=== PATIENT | female | born 1955 | race Two or more races ===

== ENCOUNTER 2017-04-22 23:07 | Emergency (ER) | payer MEDICAID ==
[~2017-04-22] VITALS: Ht 152.4 cm; Wt 79.8 kg
[~2017-04-22 23:07] MED LIST: AMLO-104 PO; AMLO-99 PO; AMOX-362 PO; AZIT-1 PO; BP MEDS; BUTA1CAP36 PO; CEFU250T67 PO; CELE100C79 PO; CIP500 PO; CITA-128 PO; CLON-393 PO; CYCL10TA29 PO; DIA5 PO; DYA PO; ERYTHROMYCIN OP; FLU20; HCTZ25; HYDR-3083 PO; HYDR-4309 PO; KET10 PO; LEVO-85 PO; LIS20 PO; LISI-349 PO; LISI-362; LISI-368 PO; LISI20TA29 PO; LOR5 PO; LOR5/325 PO; METO-259 PO; MULT1CAP41 PO; NEBI2.5T5 PO; NIT100 PO; OND4 PO; ONDA4TAB PO; ONDA4TAB97 PO; PER PO; POTA20PA10 PO; POTA20TA94 PO; PRO25 PO; PROM-110 PO; TRAM-420 PO
--- NOTE | 2017-04-22 23:14 | ER Report ---
History and Physical Time Seen By MD: 23:13 HPI/ROS CHIEF COMPLAINT: Neck pain, chest pain, anxiety, vomiting HISTORY OF PRESENT ILLNESS: 61-year-old female brought in by her daughters with concerns about her health. She's been having symptoms for 2 weeks of chest tightness and neck pain. She notes no shortness of breath, diaphoresis. She's had several episodes of vomiting. She denies diarrhea or dysuria. Patient denies significant past medical history. Patient thinks she might be having anxiety. REVIEW OF SYSTEMS: Respiratory: No cough, no dyspnea. Cardiovascular: No chest pain, no palpitations. Gastrointestinal: No vomiting, no abdominal pain. Musculoskeletal: No back pain. Allergies: Coded Allergies: morphine (Verified Allergy, Mild, 04/22/17) Uncoded Allergies: ANESTESIA (Allergy, Mild, 12/14/10) Home Meds Active Scripts Hydroxyzine Hcl (HYDROXYZINE HCL) 25 Mg Tablet, 25 MG PO 3-4XD Y for anxiety or nausea, #20 Prov:LANCE TIERNEY Yariel DO 04/23/17 Cephalexin 500 Mg Tab (KEFLEX 500 MG TAB) 500 Mg Tablet, 500 MG PO TID for infection, #20 TAB Prov:LANCE TIERNEY Yariel DO 04/23/17 Reported Medications Amlodipine Besylate (AMLODIPINE BESYLATE) 10 Mg Tablet, 1 TAB PO QDAY, TAB TAKE ONE TABLET BY MOUTH EVERY DAY 08/20/13 Lisinopril (Lisinopril) 20 Mg Tablet, 20 MG PO BID, #30 0 Refills 12/14/10 Discontinued Reported Medications [Erythromycin Op] No Conflict Check 02/08/16 Discontinued Scripts Cyclobenzaprine Hcl (CYCLOBENZAPRINE HCL) 10 Mg Tablet, 10 MG PO TID for Muscle Relaxant, #30 TAB TAKE 1 TABLET BY MOUTH THREE TIMES A DAY Prov:TAMI MELCHOR MD 03/04/15 Butalbital/Aspirin/Caffeine (FGOKCMNHOA-LOK-TIDIMQEY CAP) 1 Each Capsule, 1 EACH PO Q4H for headache, #30 CAPSULE TAKE 1 CAPSULE BY MOUTH EVERY 4 HOURS Prov:TAMI MELCHOR MD 03/04/15 Past Medical/Surgical History Hypertension Reviewed Nurses Notes: Yes Old Medical Records Reviewed: Yes Hx Smoking: No Smoking Status: Never Smoker Exposure to Second Hand Smoke?: No Hx Substance Use Disorder: No Hx Alcohol Use: No Constitutional Vital Sign - Last 24 Hours 04/22/17 04/22/17 04/22/17 04/22/17 23:07 23:14 23:16 23:17 Temp 98.2 Pulse ??? 73 Resp 22 B/P (MAP) 190/124 (146) 190/124 192/116 (141) Pulse Ox 96 O2 Delivery Room Air 04/22/17 04/22/17 04/23/17 04/23/17 23:30 23:37 00:00 00:03 Pulse 72 Resp 17 B/P (MAP) 173/99 (123) 170/121 (137) 181/108 (132) Pulse Ox 95 04/23/17 04/23/17 04/23/17 04/23/17 00:07 00:07 00:30 00:37 Pulse 71 68 Resp 30 B/P (MAP) 166/106 (126) Pulse Ox 98 99 O2 Flow Rate 15.0 04/23/17 04/23/17 04/23/17 04/23/17 01:00 01:30 02:00 02:01 Pulse 71 67 Resp 15 18 17 B/P (MAP) 168/101 (123) 169/110 (129) 169/103 (125) Pulse Ox 100 96 93 Physical Exam General Appearance: The patient is alert, has no immediate need for airway protection and no current signs of toxicity. Vital signs stable, BP grossly elevated HEENT: Pupils equal and round no injection. Oropharynx without redness or exudate, mucous members are moist Respiratory: Chest is non tender, lungs are clear to auscultation. Mild chest wall tenderness Cardiac: regular rate and rhythm, regular rate and rhythm Gastrointestinal: Abdomen is soft and non tender, no masses, bowel sounds normal. Musculoskeletal: Neck: Neck is supple and non tender. No lymphadenopathy, no tenderness in the midline Extremities have full range of motion and are non tender. Skin: No rashes or lesions. DIFFERENTIAL DIAGNOSIS: After history and physical exam differential diagnosis was considered for chest pain including but not limited to myocardial ischemia, pericarditis pulmonary embolus, chest wall pain, pleural inflammation and pulmonary infectious causes. Additionally, anxiety, infection, gastroenteritis , food poisoning, viral syndrome Medical Decision Making Data Points Result Diagram: 04/22/17223304/22/172233 Laboratory Hematology Test 04/22/17 22:34 04/22/17 23:26 Red Blood Count 5.52 M/uL (4.17-5.56) Mean Corpuscular Volume 87.0 fL (80.0-96.0) Mean Corpuscular Hemoglobin 29.8 pg (26.0-33.0) Mean Corpuscular Hemoglobin Concent 34.3 g/dL (32.0-36.0) Red Cell Distribution Width 14.0 % (11.5-14.5) Mean Platelet Volume 7.3 fL (7.2-11.1) Neutrophils (%) (Auto) 52.5 % (39.4-72.5) Lymphocytes (%) (Auto) 35.2 % (17.6-49.6) Monocytes (%) (Auto) 7.6 % (4.1-12.4) Eosinophils (%) (Auto) 4.0 % (0.4-6.7) Basophils (%) (Auto) 0.7 % (0.3-1.4) Nucleated RBC Relative Count (auto) 0.0 /100WBC Neutrophils # (Auto) 4.2 K/uL (2.0-7.4) Lymphocytes # (Auto) 2.8 K/uL (1.3-3.6) Monocytes # (Auto) 0.6 K/uL (0.3-1.0) Eosinophils # (Auto) 0.3 K/uL (0.0-0.5) Basophils # (Auto) 0.1 K/uL (0.0-0.1) Nucleated RBC Absolute Count (auto) 0.00 K/uL Sodium Level 140 mmol/L (137-145) Potassium Level 3.6 mmol/L (3.5-5.0) Chloride Level 104 mmol/L (98-107) Carbon Dioxide Level 25 mmol/L (22-31) Blood Urea Nitrogen 21 mg/dl (7-18) Creatinine 0.80 mg/dl (0.52-1.04) Glomerular Filtration Rate Calc > 60.0 Random Glucose 104 mg/dl (75-110) Calcium Level 9.3 mg/dl (8.4-10.2) Total Bilirubin 1.1 mg/dl (0.2-1.3) Aspartate Amino Transf (AST/SGOT) 30 U/L (0-35) Alanine Aminotransferase (ALT/SGPT) 45 U/L (0-56) Alkaline Phosphatase 107 U/L (0-126) Troponin I < 0.012 ng/ml Total Protein 7.4 gm/dl (6.3-8.2) Albumin 4.2 g/dl (3.5-5.0) Amylase Level 77 U/L (0-110) Lipase 257 U/L (23-300) Urine Color Yellow Urine Clarity Slightly-cloudy Urine pH 6.0 pH (4.8-9.5) Urine Specific [place] 1.020 Urine Protein Negative mg/dL (NEGATIVE) Urine Glucose (UA) Negative mg/dL (NEGATIVE) Urine Ketones Negative mg/dL (NEGATIVE) Urine Blood Negative (NEGATIVE) Urine Nitrite Negative (NEGATIVE) Urine Bilirubin Negative (NEGATIVE) Urine Urobilinogen Negative mg/dL (0.2-1.9) Urine Leukocyte Esterase Moderate (NEGATIVE) Urine RBC None /HPF (0-2/HPF) Urine WBC 49 /HPF (0-5/HPF) Urine Squamous Epithelial Cells Many /LPF (</=FEW) Urine Bacteria Negative /HPF (NONE-FEW) Urine Mucus None /HPF (NONE-FEW) Chemistry Test 04/22/17 22:34 04/22/17 23:26 White Blood Count 8.0 k/uL (4.5-11.0) Red Blood Count 5.52 M/uL (4.17-5.56) Hemoglobin 16.5 g/dL (12.0-16.0) Hematocrit 48.0 % (34.0-47.0) Mean Corpuscular Volume 87.0 fL (80.0-96.0) Mean Corpuscular Hemoglobin 29.8 pg (26.0-33.0) Mean Corpuscular Hemoglobin Concent 34.3 g/dL (32.0-36.0) Red Cell Distribution Width 14.0 % (11.5-14.5) Platelet Count 335 K/uL (150-450) Mean Platelet Volume 7.3 fL (7.2-11.1) Neutrophils (%) (Auto) 52.5 % (39.4-72.5) Lymphocytes (%) (Auto) 35.2 % (17.6-49.6) Monocytes (%) (Auto) 7.6 % (4.1-12.4) Eosinophils (%) (Auto) 4.0 % (0.4-6.7) Basophils (%) (Auto) 0.7 % (0.3-1.4) Nucleated RBC Relative Count (auto) 0.0 /100WBC Neutrophils # (Auto) 4.2 K/uL (2.0-7.4) Lymphocytes # (Auto) 2.8 K/uL (1.3-3.6) Monocytes # (Auto) 0.6 K/uL (0.3-1.0) Eosinophils # (Auto) 0.3 K/uL (0.0-0.5) Basophils # (Auto) 0.1 K/uL (0.0-0.1) Nucleated RBC Absolute Count (auto) 0.00 K/uL Glomerular Filtration Rate Calc > 60.0 Calcium Level 9.3 mg/dl (8.4-10.2) Total Bilirubin 1.1 mg/dl (0.2-1.3) Aspartate Amino Transf (AST/SGOT) 30 U/L (0-35) Alanine Aminotransferase (ALT/SGPT) 45 U/L (0-56) Alkaline Phosphatase 107 U/L (0-126) Troponin I < 0.012 ng/ml Total Protein 7.4 gm/dl (6.3-8.2) Albumin 4.2 g/dl (3.5-5.0) Amylase Level 77 U/L (0-110) Lipase 257 U/L (23-300) Urine Color Yellow Urine Clarity Slightly-cloudy Urine pH 6.0 pH (4.8-9.5) Urine Specific [place] 1.020 Urine Protein Negative mg/dL (NEGATIVE) Urine Glucose (UA) Negative mg/dL (NEGATIVE) Urine Ketones Negative mg/dL (NEGATIVE) Urine Blood Negative (NEGATIVE) Urine Nitrite Negative (NEGATIVE) Urine Bilirubin Negative (NEGATIVE) Urine Urobilinogen Negative mg/dL (0.2-1.9) Urine Leukocyte Esterase Moderate (NEGATIVE) Urine RBC None /HPF (0-2/HPF) Urine WBC 49 /HPF (0-5/HPF) Urine Squamous Epithelial Cells Many /LPF (</=FEW) Urine Bacteria Negative /HPF (NONE-FEW) Urine Mucus None /HPF (NONE-FEW) Urinalysis Test 04/22/17 23:26 Urine Color Yellow Urine Clarity Slightly-cloudy Urine pH 6.0 pH (4.8-9.5) Urine Specific [place] 1.020 Urine Protein Negative mg/dL (NEGATIVE) Urine Glucose (UA) Negative mg/dL (NEGATIVE) Urine Ketones Negative mg/dL (NEGATIVE) Urine Blood Negative (NEGATIVE) Urine Nitrite Negative (NEGATIVE) Urine Bilirubin Negative (NEGATIVE) Urine Urobilinogen Negative mg/dL (0.2-1.9) Urine Leukocyte Esterase Moderate (NEGATIVE) Urine RBC None /HPF (0-2/HPF) Urine WBC 49 /HPF (0-5/HPF) Urine Squamous Epithelial Cells Many /LPF (</=FEW) Urine Bacteria Negative /HPF (NONE-FEW) Urine Mucus None /HPF (NONE-FEW) EKG/Imaging EKG Interpretation 12 lead EK Rhythm: normal sinus rhythm [place]: normal QRS: normal ST segments: normal, no evidence of ischemia or dysrhythmia diffuse T- wave flattening, no old EKGs for comparison Imaging X-ray: Two-view chest x-ray was obtained. I viewed the images myself on the PACS system. My interpretation of the images is: No infiltrate, no effusion, normal mediastinum. The radiologist interpretation had no clinically significant variation from this interpretation. ED Course/Re-evaluation Clinical Indication for ER IV: Hydration, IV Access ED Course Patient was admitted to an examination room. H&P was done. The differential diagnoses was considered. On clinical examination. Patient has a variety of symptoms. Mostly vomiting and neck pain. Patient's treated with IV fluid hydration, Zofran, fentanyl, Toradol, Ativan. Her EKG is unremarkable for evidence of ischemia. Her troponin and d-dimer are negative. Patient's urinalysis shows urinary tract infection. Patient's treated with Keflex 1000 mg here. She is discharged home on hydroxyzine for nausea control and anxiety control. She is advised to take ibuprofen 600 mg 3 times daily. Her blood pressure came down after medication for pain and anxiety. Decision to Disposition Date: Apr 23, 2017 Decision to Disposition Time: 00:23 Depart Departure Latest Vital Signs Vital Signs Date Time Temp Pulse Resp B/P (MAP) Pulse Ox O2 Delivery O2 Flow Rate FiO2 04/23/17 02:01 17 93 04/23/17 02:00 67 169/103 (125) 04/23/17 00:07 15.0 1/1/18 23:16 98.2 Room Air Impression: Primary Impression: Urinary tract infection Additional Impressions: Back pain Chest tightness Vomiting Hypertension Condition: Improved Disposition: HOME OR SELF-CARE Referrals: ANDRADE ALY PA-C (PCP) New Scripts Hydroxyzine Hcl (HYDROXYZINE HCL) 25 Mg Tablet 25 MG PO 3-4XD Y for anxiety or nausea, #20 Prov: LANCE TIERNEY Yariel VERMA 04/23/17 Cephalexin 500 Mg Tab (KEFLEX 500 MG TAB) 500 Mg Tablet 500 MG PO TID for infection, #20 TAB Prov: LANCE TIERNEY Yariel VERMA 04/23/17 Patient Instructions: Urinary Tract Infection in Women (ED) Additional Instructions: Take ibuprofen 200 mg 3 tablets 3 times a day with food Drink plenty of water to help flush out the urine infection Follow-up with your primary care doctor if unimproved in 3-5 days Problem Qualifiers Primary Impression: Urinary tract infection Urinary tract infection type: acute cystitis Hematuria presence: without hematuria Qualified Codes: N30.00 - Acute cystitis without hematuria Additional Impressions: Back pain Back pain location: thoracic back pain Chronicity: unspecified Back pain laterality: unspecified Qualified Codes: M54.6 - Pain in thoracic spine Vomiting Vomiting type: unspecified Vomiting Intractability: unspecified Nausea presence: with nausea Qualified Codes: R11.2 - Nausea with vomiting, unspecified Hypertension Hypertension type: essential hypertension Qualified Codes: I10 - Essential ( primary) hypertension LANCE TIERNEY Yariel VERMA Apr 22, 2017 23:13
[2017-04-22] MEDS ORDERED: NS(*) 0.9% 1000 ML BAG 1,000 ML IV ONE (23:26)
[2017-04-22] MEDS ORDERED: KETOROLAC 30 MG/ML VIAL IVP ONE (23:30)
[2017-04-22] MEDS ORDERED: fentaNYL CITR 100 MCG/2 ML AMP IVP ONE (23:30)
[2017-04-22] MEDS ORDERED: LORazepam 2 MG/ML VIAL IVP ONE (23:30)
[2017-04-22] MEDS ORDERED: ONDANSETRON 4 MG/2 ML VIAL IVP ONE (23:30)
[2017-04-22 23:43] LABS: PLATELET COUNT, AUTOMATED 335 K/uL (150-450)
--- NOTE | 2017-04-23 00:17 | RADIOLOGY IMAGING REPORT ---
FACILITY: [facility] PATIENT NAME: Ramya Russell : 1955 MR: [id number] V: [id number] EXAM DATE: ORDERING PHYSICIAN: LANCE TIERNEY TECHNOLOGIST: Location: [facility] [place] Patient: Ramya Russell : 1955 Visit/Account:[id number] Date of Sevice: 04/22/2017 CHEST SINGLE AP Additional pertinent History: Chest pain COMPARISON STUDIES: none FINDINGS: Support lines and catheters: EKG wire leads Lungs and Pleura: Lung fishman well expanded with no infiltrates or consolidations. No parenchymal ma ss lesions are seen. There are no effusions Heart and vasculature: Negative. Mindi and Mediastinum: Negative. Bones and Chest wall: Negative. Upper Abdomen: Negative. IMPRESSION: 1. Negative chest Report Dictated By: Nirmal Euceda MD at 04/23/2017 12:09 AM Report E-Signed By: Nirmal Euceda MD at 04/23/2017 12:13 AM WSN:[id number]
[2017-04-23] MEDS ORDERED: CEPH500T7 PO (00:28)
[2017-04-23] MEDS ORDERED: HYDR-4225 PO (00:28)
--- NOTE | 2017-04-23 00:31 | EKG ---
FACILITY: [facility] - [place] PATIENT NAME: VIVIAN HOPPER : [id number] MR: [id number] V: [id number] EXAM DATE: ORDERING PHYSICIAN: LANCE TIERNEY TECHNOLOGIST: SJ Pope Reason : CARDIAC Blood Pressure : / mmHG Vent. Rate : 080 BPM Atrial Rate : 080 BPM P-R Int : 150 ms QRS Dur : 082 ms QT Int : 392 ms P-R-T Axes : 057 009 059 degrees QTc Int : 452 ms Normal sinus rhythm Normal ECG When compared with ECG of 25-DEC-2014 15:13, No significant change was found Confirmed by ASHLEE MARIE ([id number]) on 04/23/2017 6:49:06 AM Referred By: Confirmed By:ASHLEE MARIE
[2017-04-23 02:00] VITALS: BP 169/103
[2017-04-23] MEDS ORDERED: CEPHALEXIN MONO 500 MG CAP PO ONE (02:00)
[2017-04-23] MEDS ORDERED: hydrOXYzine 25 MG TAB TH 2 TAB/BOTTLE PO ONE (02:00)
== END 2017-04-23 02:14 | disposition home or self-care (01) ==
LOC: ER 23:33
DX: N30.00 Acute cystitis without hematuria (principal); M54.6 Pain in thoracic spine; R11.2 Nausea with vomiting, unspecified; I10 Essential (primary) hypertension
CPT/HCPCS: 71045; 81001; 82150; 83690; 84484; 85025; 87088; 93005; 99284; J1885; J2060; J2405; J3010; J7030; 82040; 82247; 82310; 82374; 82435; 82565; 82947; 84075; 84132; 84155; 84295; 84450; 84460; 84520

== ENCOUNTER 2017-05-11 14:13 | Emergency (ER) | payer MEDICAID ==
[~2017-05-11 14:13] MED LIST changes: +CEPH500T7 PO; +HYDR-4225 PO
--- NOTE | 2017-05-11 14:36 | ER Report ---
History and Physical Time Seen By MD: 14:22 Hx. 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 THE PATIENT REPORTS HEADACHE FOR 5 DAYS WITH 1 EPISODE OF VOMITING YESTERDAY. HPI/ROS CHIEF COMPLAINT: Headache HISTORY OF PRESENT ILLNESS: 61-year-old female patient presents to emergency room with complaint of headache. Patient states this has been going on for the past 5 days. Patient states she did have one episode of emesis yesterday. States the pain seems more on the right side. She denies having any diarrhea. She states that she has had some visual changes. She has taken some ibuprofen for this which has helped, however was not resolve the headache. She states that she is to blood pressure medication and denies missing any doses. Blood pressure here in the emergency room is 184/82. REVIEW OF SYSTEMS: Respiratory: No cough, no dyspnea. Cardiovascular: No chest pain, no palpitations. Gastrointestinal: As noted above Musculoskeletal: No back pain. Allergies: Coded Allergies: morphine (Verified Allergy, Mild, 04/22/17) Uncoded Allergies: ANESTESIA (Allergy, Mild, 12/14/10) Home Meds Active Scripts Ketorolac Tromethamine (KETOROLAC TROMETHAMINE) 10 Mg Tab, 10 MG PO Q6H, #20 TAB Prov:RANJIT AHMADI 05/11/17 Hydroxyzine Hcl (HYDROXYZINE HCL) 25 Mg Tablet, 25 MG PO 3-4XD Y for anxiety or nausea, #20 Prov:LANCE TIERNEY DO 04/23/17 Reported Medications Amlodipine Besylate (AMLODIPINE BESYLATE) 10 Mg Tablet, 1 TAB PO QDAY, TAB TAKE ONE TABLET BY MOUTH EVERY DAY 08/20/13 Lisinopril (Lisinopril) 20 Mg Tablet, 20 MG PO BID, #30 0 Refills 12/14/10 Discontinued Scripts Cephalexin 500 Mg Tab (KEFLEX 500 MG TAB) 500 Mg Tablet, 500 MG PO TID for infection, #20 TAB Prov:LANCE TIERNEY DO 04/23/17 Past Medical/Surgical History Patient has a past medical history of migraines, hypertension, UTI, arthritis. Patient has a surgical history of tumor removal, appendectomy. Reviewed Nurses Notes: Yes Hx Smoking: No Smoking Status: Never Smoker Exposure to Second Hand Smoke?: No Hx Substance Use Disorder: No Hx Alcohol Use: No Constitutional Vital Sign - Last 24 Hours 05/11/17 05/11/17 05/11/17 05/11/17 14:16 14:18 14:19 14:28 Temp 97.6 Pulse 79 79 Resp 20 B/P (MAP) 190/115 (140) 184/94 184/94 (124) Pulse Ox 92 92 O2 Delivery Room Air 05/11/17 05/11/17 05/11/17 05/11/17 14:30 14:58 15:00 15:13 Pulse 77 82 B/P (MAP) 186/101 (129) 177/98 (124) Pulse Ox 90 92 05/11/17 05/11/17 05/11/17 05/11/17 15:18 15:30 16:00 16:15 B/P (MAP) 153/119 (130) 164/108 (126) 162/103 (122) Pulse Ox 91 Physical Exam General Appearance: The patient is alert, has no immediate need for airway protection and no current signs of toxicity. Eyes: Pupils equal and round no injection. Extraocular movements intact. Respiratory: Chest is non tender, lungs are clear to auscultation. Cardiac: regular rate and rhythm Gastrointestinal: Abdomen is soft and non tender, no masses, bowel sounds normal. Musculoskeletal: Neck: Neck is supple and non tender. Extremities have full range of motion and are non tender. Skin: No rashes or lesions. DIFFERENTIAL DIAGNOSIS: After history and physical exam differential diagnosis was considered for headache including but not limited to subarachnoid hemorrhage , migraine headache, tension headache and infectious causes such as meningitis, pharyngitis and sinusitis. Medical Decision Making Data Points Result Diagram: 05/11/17 1430 05/11/17 1430 Laboratory Hematology Test 05/11/17 14:30 05/11/17 15:24 Red Blood Count 5.45 M/uL (4.17-5.56) Mean Corpuscular Volume 86.8 fL (80.0-96.0) Mean Corpuscular Hemoglobin 30.2 pg (26.0-33.0) Mean Corpuscular Hemoglobin Concent 34.8 g/dL (32.0-36.0) Red Cell Distribution Width 13.9 % (11.5-14.5) Mean Platelet Volume 7.3 fL (7.2-11.1) Neutrophils (%) (Auto) 55.8 % (39.4-72.5) Lymphocytes (%) (Auto) 33.2 % (17.6-49.6) Monocytes (%) (Auto) 5.7 % (4.1-12.4) Eosinophils (%) (Auto) 4.7 % (0.4-6.7) Basophils (%) (Auto) 0.6 % (0.3-1.4) Nucleated RBC Relative Count (auto) 0.3 /100WBC Neutrophils # (Auto) 4.1 K/uL (2.0-7.4) Lymphocytes # (Auto) 2.4 K/uL (1.3-3.6) Monocytes # (Auto) 0.4 K/uL (0.3-1.0) Eosinophils # (Auto) 0.3 K/uL (0.0-0.5) Basophils # (Auto) 0.0 K/uL (0.0-0.1) Nucleated RBC Absolute Count (auto) 0.02 K/uL Peripheral Blood Smear No Y/N Erythrocyte Sedimentation Rate 5 mm/HOUR (0-30) Sodium Level 138 mmol/L (137-145) Potassium Level 3.7 mmol/L (3.5-5.0) Chloride Level 103 mmol/L (98-107) Carbon Dioxide Level 25 mmol/L (22-31) Blood Urea Nitrogen 13 mg/dl (7-18) Creatinine 0.90 mg/dl (0.52-1.04) Glomerular Filtration Rate Calc > 60.0 Random Glucose 130 mg/dl (75-110) Calcium Level 9.2 mg/dl (8.4-10.2) Total Bilirubin 1.8 mg/dl (0.2-1.3) Aspartate Amino Transf (AST/SGOT) 29 U/L (0-35) Alanine Aminotransferase (ALT/SGPT) 50 U/L (0-56) Alkaline Phosphatase 91 U/L (0-126) Troponin I < 0.012 ng/ml C-Reactive Protein < 0.5 mg/dl (<1.0) Total Protein 7.2 gm/dl (6.3-8.2) Albumin 4.2 g/dl (3.5-5.0) Urine Color Yellow Urine Clarity Clear Urine pH 7.0 pH (4.8-9.5) Urine Specific [place] 1.009 Urine Protein Negative mg/dL (NEGATIVE) Urine Glucose (UA) Negative mg/dL (NEGATIVE) Urine Ketones Negative mg/dL (NEGATIVE) Urine Blood Small (NEGATIVE) Urine Nitrite Negative (NEGATIVE) Urine Bilirubin Negative (NEGATIVE) Urine Urobilinogen Negative mg/dL (0.2-1.9) Urine Leukocyte Esterase Moderate (NEGATIVE) Urine RBC 1 /HPF (0-2/HPF) Urine WBC 17 /HPF (0-5/HPF) Urine Squamous Epithelial Cells Many /LPF (</=FEW) Urine Transitional Epithelial Cells Many /LPF (NONE-FEW) Urine Bacteria Few /HPF (NONE-FEW) Urine Mucus None /HPF (NONE-FEW) Chemistry Test 05/11/17 14:30 05/11/17 15:24 White Blood Count 7.3 k/uL (4.5-11.0) Red Blood Count 5.45 M/uL (4.17-5.56) Hemoglobin 16.5 g/dL (12.0-16.0) Hematocrit 47.3 % (34.0-47.0) Mean Corpuscular Volume 86.8 fL (80.0-96.0) Mean Corpuscular Hemoglobin 30.2 pg (26.0-33.0) Mean Corpuscular Hemoglobin Concent 34.8 g/dL (32.0-36.0) Red Cell Distribution Width 13.9 % (11.5-14.5) Platelet Count 315 K/uL (150-450) Mean Platelet Volume 7.3 fL (7.2-11.1) Neutrophils (%) (Auto) 55.8 % (39.4-72.5) Lymphocytes (%) (Auto) 33.2 % (17.6-49.6) Monocytes (%) (Auto) 5.7 % (4.1-12.4) Eosinophils (%) (Auto) 4.7 % (0.4-6.7) Basophils (%) (Auto) 0.6 % (0.3-1.4) Nucleated RBC Relative Count (auto) 0.3 /100WBC Neutrophils # (Auto) 4.1 K/uL (2.0-7.4) Lymphocytes # (Auto) 2.4 K/uL (1.3-3.6) Monocytes # (Auto) 0.4 K/uL (0.3-1.0) Eosinophils # (Auto) 0.3 K/uL (0.0-0.5) Basophils # (Auto) 0.0 K/uL (0.0-0.1) Nucleated RBC Absolute Count (auto) 0.02 K/uL Peripheral Blood Smear No Y/N Erythrocyte Sedimentation Rate 5 mm/HOUR (0-30) Glomerular Filtration Rate Calc > 60.0 Calcium Level 9.2 mg/dl (8.4-10.2) Total Bilirubin 1.8 mg/dl (0.2-1.3) Aspartate Amino Transf (AST/SGOT) 29 U/L (0-35) Alanine Aminotransferase (ALT/SGPT) 50 U/L (0-56) Alkaline Phosphatase 91 U/L (0-126) Troponin I < 0.012 ng/ml C-Reactive Protein < 0.5 mg/dl (<1.0) Total Protein 7.2 gm/dl (6.3-8.2) Albumin 4.2 g/dl (3.5-5.0) Urine Color Yellow Urine Clarity Clear Urine pH 7.0 pH (4.8-9.5) Urine Specific [place] 1.009 Urine Protein Negative mg/dL (NEGATIVE) Urine Glucose (UA) Negative mg/dL (NEGATIVE) Urine Ketones Negative mg/dL (NEGATIVE) Urine Blood Small (NEGATIVE) Urine Nitrite Negative (NEGATIVE) Urine Bilirubin Negative (NEGATIVE) Urine Urobilinogen Negative mg/dL (0.2-1.9) Urine Leukocyte Esterase Moderate (NEGATIVE) Urine RBC 1 /HPF (0-2/HPF) Urine WBC 17 /HPF (0-5/HPF) Urine Squamous Epithelial Cells Many /LPF (</=FEW) Urine Transitional Epithelial Cells Many /LPF (NONE-FEW) Urine Bacteria Few /HPF (NONE-FEW) Urine Mucus None /HPF (NONE-FEW) Urinalysis Test 05/11/17 15:24 Urine Color Yellow Urine Clarity Clear Urine pH 7.0 pH (4.8-9.5) Urine Specific [place] 1.009 Urine Protein Negative mg/dL (NEGATIVE) Urine Glucose (UA) Negative mg/dL (NEGATIVE) Urine Ketones Negative mg/dL (NEGATIVE) Urine Blood Small (NEGATIVE) Urine Nitrite Negative (NEGATIVE) Urine Bilirubin Negative (NEGATIVE) Urine Urobilinogen Negative mg/dL (0.2-1.9) Urine Leukocyte Esterase Moderate (NEGATIVE) Urine RBC 1 /HPF (0-2/HPF) Urine WBC 17 /HPF (0-5/HPF) Urine Squamous Epithelial Cells Many /LPF (</=FEW) Urine Transitional Epithelial Cells Many /LPF (NONE-FEW) Urine Bacteria Few /HPF (NONE-FEW) Urine Mucus None /HPF (NONE-FEW) EKG/Imaging EKG Interpretation 12 lead EKG: Rhythm: normal sinus rhythm [place]: normal QRS: normal ST segments: Nonspecific T-wave abnormality Imaging 2 VIEWS CHEST INDICATION: Hypertension and headache. COMPARISON: 04/22/2017. FINDINGS: Cardiomediastinal silhouette and pulmonary vessels within normal limits. There is no focal infiltrate or lobar consolidation. There is no pneumothorax or pleural effusion. No nodule. Upper abdomen is unremarkable. No acute bony abnormality. IMPRESSION: 1. No acute cardiopulmonary process. Report Dictated By: Familia Zafar at 05/11/2017 3:00 PM Report E-Signed By: Familia Zafar at 05/11/2017 3:01 PM HEAD W/O CONTRAST EXAMINATION: CT head/brain without contrast HISTORY: Headache TECHNIQUE: Contiguous axial images were obtained from the skull base to the vertex without intravenous contrast. One of the following dose optimization techniques was utilized in the performance of this exam: Automated exposure control; adjustment of the mA and/ or kV according to the patient's size; or use of an iterative reconstruction technique. Specific details can be referenced in the facility's radiology CT exam operational policy. COMPARISON STUDIES: None FINDINGS: Ventricles/sulci/fissures: Midline in position and normal in configuration. Masses/hemorrhage/midline shift: No hemorrhage or mass. White matter: No white matter edema. Guzman-white differentiation: Well-maintained. No cerebral edema. No sulci effacement. Extra-axial spaces: No subarachnoid blood. Dural venous sinuses/arterial structures: Prominent calcific changes noted along the distal left vertebral artery. 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 Skull base/calvarium: Negative Visualized mastoid air cells/paranasal sinuses: Negative IMPRESSION: 1. Negative CT scan of the head for acute intracranial pathology. Report Dictated By: Nirmal Euceda MD at 05/11/2017 3:01 PM Report E-Signed By: Nirmal Euceda MD at 05/11/2017 3:04 PM ED Course/Re-evaluation ED Course Patient was admitted to exam room, history and physical were obtained. Differential diagnoses were considered. On examination cranial nerves II through XII grossly intact, heart is regular. A CBC, CMP, troponin, EKG, chest x -ray, CT scan of the head were done. The labs were unremarkable, CT scan of head was negative, with the chest x-ray was also negative. A urinalysis was done which did show 17 white blood cells per field. Patient had just finished treatment with antibiotics for urinary tract infection. As a result of that we will go ahead and culture the urine and put her on antibiotics if she needs to. Patient was treated with 30 mg of Toradol, 25 mg of Benadryl, 12.5 mg of Phenergan, 30 mg of Norflex. She does received 0.1 mg of clonidine. Her blood pressure did improve, she was 162/103 on discharge. Patient states she had complete resolution of her headache. She states she's feeling better would like to go home. I had initially planned on sending her home with clonidine that she can take as needed however she does not have a blood pressure cuff at home. We will go ahead and hold off on that and have her follow-up with her primary care provider this next week. I discussed this with the patient and her daughter and they verbalized understanding and agreement. Decision to Disposition Date: May 11, 2017 Decision to Disposition Time: 16:09 Depart Departure Latest Vital Signs Vital Signs Date Time Temp Pulse Resp B/P (MAP) Pulse Ox O2 Delivery O2 Flow Rate FiO2 05/11/17 16:15 162/103 (122) 05/11/17 15:18 91 05/11/17 15:13 82 05/11/17 14:18 97.6 20 Room Air Impression: Primary Impression: Headache Additional Impression: Hypertension Condition: Improved Disposition: HOME OR SELF-CARE New Scripts Ketorolac Tromethamine (KETOROLAC TROMETHAMINE) 10 Mg Tab 10 MG PO Q6H, #20 TAB Prov: DAIANARANJIT FNP 05/11/17 Patient Instructions: Acute Headache (ED) Additional Instructions: Follow up with your primary care provider in the next week. Return to the ER if condition worsens. Get plenty of rest today. You may take some medication for your headache if it returns. Increase fluid intake. Problem Qualifiers Primary Impression: Headache Headache type: unspecified Headache chronicity pattern: acute headache Intractability: not intractable Qualified Codes: R51 - Headache Additional Impression: Hypertension Hypertension type: essential hypertension Qualified Codes: I10 - Essential ( primary) hypertension RANJIT AHMADI May 11, 2017 14:36
[2017-05-11 14:41] LABS: PLATELET COUNT, AUTOMATED 315 K/uL (150-450)
--- NOTE | 2017-05-11 15:06 | RADIOLOGY IMAGING REPORT ---
FACILITY: [facility] [place] PATIENT NAME: Ramya Russell : 1955 MR: [id number] V: [id number] EXAM DATE: ORDERING PHYSICIAN: RANJIT AHMADI TECHNOLOGIST: Location: [facility] Patient: Ramya Russell : 1955 Visit/Account:[id number] Date of Sevice: 05/11/2017 2 VIEWS CHEST INDICATION: Hypertension and headache. COMPARISON: 04/22/2017. FINDINGS: Cardiomediastinal silhouette and pulmonary vessels within normal limits. There is no focal infiltrate or lobar consolidation. There is no pneumothorax or pleural effusion. No nodule. Upper abdomen is unremarkable. No acute bony abnormality. IMPRESSION: 1. No acute cardiopulmonary process. Report Dictated By: Familia Zafar at 05/11/2017 3:00 PM Report E-Signed By: Familia Zafar at 05/11/2017 3:01 PM WSN:[id number]
--- NOTE | 2017-05-11 15:07 | RADIOLOGY IMAGING REPORT ---
FACILITY: [facility] PATIENT NAME: Ramya Russell : 1955 MR: [id number] V: [id number] EXAM DATE: ORDERING PHYSICIAN: RANJIT AHMADI TECHNOLOGIST: Location: [facility] Patient: Ramya Russell : 1955 Visit/Account:[id number] Date of Sevice: 05/11/2017 HEAD W/O CONTRAST EXAMINATION: CT head/brain without contrast HISTORY: Headache TECHNIQUE: Contiguous axial images were obtained from the skull base to the vertex without intravenou s contrast. One of the following dose optimization techniques was utilized in the performance of this exam: Autom ated exposure control; adjustment of the mA and/or kV according to the patient's size; or use of an i terative reconstruction technique. Specific details can be referenced in the facility's radiology C T exam operational policy. COMPARISON STUDIES: None FINDINGS: Ventricles/sulci/fissures: Midline in position and normal in configuration. Masses/hemorrhage/midline shift: No hemorrhage or mass. White matter: No white matter edema. Guzman-white differentiation: Well-maintained. No cerebral edema. No sulci effacement. Extra-axial spaces: No subarachnoid blood. Dural venous sinuses/arterial structures: Prominent calcific changes noted along the distal left vert ebral artery. 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 Skull base/calvarium: Negative Visualized mastoid air cells/paranasal sinuses: Negative IMPRESSION: 1. Negative CT scan of the head for acute intracranial pathology. Report Dictated By: Nirmal Euceda MD at 05/11/2017 3:01 PM Report E-Signed By: Nirmal Euceda MD at 05/11/2017 3:04 PM WSN:[id number]
[2017-05-11] MEDS ORDERED: cloNIDine HCL 0.1 MG TAB PO ONE (15:20)
[2017-05-11] MEDS ORDERED: ORPHENADRINE 60MG/2ML INJ IVP ONE (15:20)
[2017-05-11] MEDS ORDERED: diphenhydrAMINE 50 MG/ML VIAL IVP ONE (15:20)
[2017-05-11] MEDS ORDERED: KETOROLAC 30 MG/ML VIAL IVP ONE (15:20)
[2017-05-11] MEDS ORDERED: PROMETHAZINE 25 MG/ML 1 ML AMP IVP ONE (15:20)
--- NOTE | 2017-05-11 15:23 | EKG ---
FACILITY: [facility] [place] PATIENT NAME: VIVIAN HOPPER : [id number] MR: [id number] V: [id number] EXAM DATE: ORDERING PHYSICIAN: RANJIT AHMADI TECHNOLOGIST: EMANI Pope Reason : HYPERTENSION Blood Pressure : / mmHG Vent. Rate : 076 BPM Atrial Rate : 076 BPM P-R Int : 156 ms QRS Dur : 082 ms QT Int : 422 ms P-R-T Axes : 061 006 064 degrees QTc Int : 474 ms Normal sinus rhythm Nonspecific T wave abnormality Prolonged QT Abnormal ECG When compared with ECG of 22-APR-2017 23:45, No significant change was found Confirmed by ASHLEE MARIE ([id number]) on 05/11/2017 8:37:08 PM Referred By: DAIANA Confirmed By:ASHLEE MARIE
[2017-05-11] MEDS ORDERED: KET10 PO (16:08)
[2017-05-11 16:15] VITALS: BP 162/103
== END 2017-05-11 16:22 | disposition home or self-care (01) ==
LOC: ER 14:26
DX: R51 Headache (principal); I10 Essential (primary) hypertension; Z87.440 Personal history of urinary (tract) infections
CPT/HCPCS: 70450; 71046; 81001; 84484; 85025; 85651; 86140; 87088; 93005; 96374; 96375; 99284; J1200; J1885; J2360; J2550; 82040; 82247; 82310; 82374; 82435; 82565; 82947; 84075; 84132; 84155; 84295; 84450; 84460; 84520

== ENCOUNTER 2017-07-12 20:09 | Emergency (ER) | payer MEDICAID ==
[2017-07-12] MEDS ORDERED: BENZ200C15 PO (20:26)
[2017-07-12] MEDS ORDERED: PRED20TA6 PO (20:27)
--- NOTE | 2017-07-12 20:27 | ER Report ---
History and Physical Time Seen By MD: 20:26 Hx. of Stated Complaint: CHEST PAIN WITH COUGHING, DIZZINESS HPI/ROS CHIEF COMPLAINT: cough HISTORY OF PRESENT ILLNESS: This is a 61 year old female. She has had a cough for a little over a week now. Coughing is now causing some chest pain in the ribs. She is not short of breath. Has a headache and a runny nose. No fevers. No nausea or vomiting. Normal bowel and bladder function. Allergies: Coded Allergies: morphine (Verified Allergy, Mild, 04/22/17) Uncoded Allergies: ANESTESIA (Allergy, Mild, 12/14/10) Home Meds Active Scripts Hydrocodone Bit/Acetaminophen (HYDROCODON-ACETAMINOPHEN 5-325) 1 Each Tablet, 1 EACH PO Q4H Y for PAIN, #12 TAB 0 Refills Prov:VIRGIE WHITE MD 07/12/17 Reported Medications Albuterol Sulfate (VENTOLIN HFA) 18 Gm Inh, 1-2 PUFF INH 3-4XD, INH 07/12/17 Doxycycline Hyclate (Doxycycline Hyclate) 75 Mg Tablet, 100 07/12/17 Prednisone (PREDNISONE) 20 Mg Tablet, 20 MG PO BID, TAB 07/12/17 Benzonatate (BENZONATATE) 200 Mg Capsule, 200 MG PO TID, #15 CAP 07/12/17 Amlodipine Besylate (AMLODIPINE BESYLATE) 10 Mg Tablet, 1 TAB PO QDAY, TAB TAKE ONE TABLET BY MOUTH EVERY DAY 08/20/13 Lisinopril (Lisinopril) 20 Mg Tablet, 20 MG PO BID, #30 0 Refills 12/14/10 Discontinued Scripts Ketorolac Tromethamine (KETOROLAC TROMETHAMINE) 10 Mg Tab, 10 MG PO Q6H, #20 TAB Prov:RANJIT AHMADI 05/11/17 Hydroxyzine Hcl (HYDROXYZINE HCL) 25 Mg Tablet, 25 MG PO 3-4XD Y for anxiety or nausea, #20 Prov:LANCE TIERNEY DO 04/23/17 Reviewed Nurses Notes: Yes Hx Smoking: No Smoking Status: Never Smoker Exposure to Second Hand Smoke?: No Hx Substance Use Disorder: No Hx Alcohol Use: No Constitutional Vital Sign - Last 24 Hours 07/12/17 07/12/17 07/12/17 07/12/17 20:09 20:13 20:14 20:24 Temp 99.1 Pulse ??? 93 94 Resp 16 35 B/P (MAP) 161/115 161/115 (130) Pulse Ox 94 94 O2 Delivery Room Air 07/12/17 07/12/17 07/12/17 07/12/17 20:39 20:54 21:06 21:11 Pulse 93 ??? 90 Resp 28 32 B/P (MAP) 121/75 (90) Pulse Ox 93 93 07/12/17 07/12/17 07/12/17 07/12/17 21:30 21:41 22:00 22:05 Pulse 85 87 Resp 26 14 B/P (MAP) 141/90 (107) 146/89 (108) Pulse Ox 93 95 07/12/17 22:11 Pulse 85 Resp 16 B/P (MAP) 142/86 (104) Pulse Ox 92 O2 Delivery Room Air Physical Exam General Appearance: The patient is alert. No acute distress. Eyes: Pupils are equal, round. Reactive to light. No pallor, injection or icterus. ENT: Mucous membranes are moist. Normal oral mucosa. Posterior oropharynx has erythema and post nasal drainage. Nasal mucosa is erythematous. Tympanic membranes and canals without redness or bulging, but have bilateral effusion. Neck: Supple and non tender. Has anterior cervical non-tender lymphadenopathy. Respiratory: Lungs are clear to auscultation. Cardiovascular: Regular rate and rhythm. No murmurs, gallops or rubs. Normal capillary refill. Gastrointestinal: Abdomen is soft and non tender. Nondistended. Normal active bowel sounds. Neurological: Alert and oriented x3. Skin: Warm and dry. DIFFERENTIAL DIAGNOSIS: After history and physical exam, differential diagnosis was considered for cough and fever, likely viral such as influenza versus other pulmonary infectious process. Medical Decision Making Data Points Result Diagram: 07/12/17201907/12/172019 Laboratory Hematology Test 07/12/17 20:20 07/12/17 20:35 Red Blood Count 5.55 M/uL (4.17-5.56) Mean Corpuscular Volume 87.5 fL (80.0-96.0) Mean Corpuscular Hemoglobin 30.1 pg (26.0-33.0) Mean Corpuscular Hemoglobin Concent 34.4 g/dL (32.0-36.0) Red Cell Distribution Width 13.9 % (11.5-14.5) Mean Platelet Volume 7.8 fL (7.2-11.1) Neutrophils (%) (Auto) 78.6 % (39.4-72.5) Lymphocytes (%) (Auto) 11.1 % (17.6-49.6) Monocytes (%) (Auto) 9.8 % (4.1-12.4) Eosinophils (%) (Auto) 0.3 % (0.4-6.7) Basophils (%) (Auto) 0.2 % (0.3-1.4) Nucleated RBC Relative Count (auto) 0.1 /100WBC Neutrophils # (Auto) 6.9 K/uL (2.0-7.4) Lymphocytes # (Auto) 1.0 K/uL (1.3-3.6) Monocytes # (Auto) 0.9 K/uL (0.3-1.0) Eosinophils # (Auto) 0.0 K/uL (0.0-0.5) Basophils # (Auto) 0.0 K/uL (0.0-0.1) Nucleated RBC Absolute Count (auto) 0.01 K/uL Sodium Level 140 mmol/L (137-145) Potassium Level 3.2 mmol/L (3.5-5.0) Chloride Level 103 mmol/L (98-107) Carbon Dioxide Level 23 mmol/L (22-31) Blood Urea Nitrogen 20 mg/dl (7-18) Creatinine 1.00 mg/dl (0.52-1.04) Glomerular Filtration Rate Calc 56.4 Random Glucose 127 mg/dl (75-110) Calcium Level 9.7 mg/dl (8.4-10.2) Total Bilirubin 0.6 mg/dl (0.2-1.3) Aspartate Amino Transf (AST/SGOT) 32 U/L (0-35) Alanine Aminotransferase (ALT/SGPT) 41 U/L (0-56) Alkaline Phosphatase 86 U/L (0-126) Total Protein 7.8 gm/dl (6.3-8.2) Albumin 4.3 g/dl (3.5-5.0) Influenza Virus Type A (PCR) Negative (NEGATIVE) Influenza Virus Type B (PCR) Negative (NEGATIVE) Chemistry Test 07/12/17 20:20 07/12/17 20:35 White Blood Count 8.8 k/uL (4.5-11.0) Red Blood Count 5.55 M/uL (4.17-5.56) Hemoglobin 16.7 g/dL (12.0-16.0) Hematocrit 48.5 % (34.0-47.0) Mean Corpuscular Volume 87.5 fL (80.0-96.0) Mean Corpuscular Hemoglobin 30.1 pg (26.0-33.0) Mean Corpuscular Hemoglobin Concent 34.4 g/dL (32.0-36.0) Red Cell Distribution Width 13.9 % (11.5-14.5) Platelet Count 350 K/uL (150-450) Mean Platelet Volume 7.8 fL (7.2-11.1) Neutrophils (%) (Auto) 78.6 % (39.4-72.5) Lymphocytes (%) (Auto) 11.1 % (17.6-49.6) Monocytes (%) (Auto) 9.8 % (4.1-12.4) Eosinophils (%) (Auto) 0.3 % (0.4-6.7) Basophils (%) (Auto) 0.2 % (0.3-1.4) Nucleated RBC Relative Count (auto) 0.1 /100WBC Neutrophils # (Auto) 6.9 K/uL (2.0-7.4) Lymphocytes # (Auto) 1.0 K/uL (1.3-3.6) Monocytes # (Auto) 0.9 K/uL (0.3-1.0) Eosinophils # (Auto) 0.0 K/uL (0.0-0.5) Basophils # (Auto) 0.0 K/uL (0.0-0.1) Nucleated RBC Absolute Count (auto) 0.01 K/uL Glomerular Filtration Rate Calc 56.4 Calcium Level 9.7 mg/dl (8.4-10.2) Total Bilirubin 0.6 mg/dl (0.2-1.3) Aspartate Amino Transf (AST/SGOT) 32 U/L (0-35) Alanine Aminotransferase (ALT/SGPT) 41 U/L (0-56) Alkaline Phosphatase 86 U/L (0-126) Total Protein 7.8 gm/dl (6.3-8.2) Albumin 4.3 g/dl (3.5-5.0) Influenza Virus Type A (PCR) Negative (NEGATIVE) Influenza Virus Type B (PCR) Negative (NEGATIVE) EKG/Imaging EKG Interpretation 12 lead EKG: Rhythm: normal sinus rhythm, rate 91 [place]: normal QRS: normal ST segments: normal Imaging EXAMINATION: PA and Lateral Chest 07/12/2017 8:36 PM HISTORY: Chest pain and cough for 2 weeks. COMPARISON: 05/11/2017 FINDINGS: Cardiomediastinal contours: Normal Lungs and pleura: Normal Bones/soft tissues: Normal IMPRESSION: No acute cardiopulmonary abnormality. Report Dictated By: Doni Mendoza MD at 07/12/2017 9:05 PM ED Course/Re-evaluation Clinical Indication for ER IV: IV Access ED Course Influenza negative. Blood work otherwise unremarkable other than slight decrease potassium. No acute cardiopulmonary problems noted. Treatment for viral upper respiratory infection. Lortab for cough and pain. Decision to Disposition Date: Jul 12, 2017 Decision to Disposition Time: 22:04 Depart Departure Latest Vital Signs Vital Signs Date Time Temp Pulse Resp B/P (MAP) Pulse Ox O2 Delivery O2 Flow Rate FiO2 07/12/17 22:11 85 16 142/86 (104) 92 Room Air 07/12/17 20:13 99.1 Impression: Primary Impression: Upper respiratory infection Condition: Improved Disposition: HOME OR SELF-CARE New Scripts Hydrocodone Bit/Acetaminophen (HYDROCODON-ACETAMINOPHEN 5-325) 1 Each Tablet 1 EACH PO Q4H Y for PAIN, #12 TAB 0 Refills Prov: VIRGIE WHITE MD 07/12/17 Patient Instructions: Upper Respiratory Infection (ED) Additional Instructions: Keep taking your other medicines and inhaler. Rest and increase fluid intake. Take Lortab 5/325, one every 4 hours as needed for cough or pain. Problem Qualifiers Primary Impression: Upper respiratory infection URI type: unspecified viral URI Qualified Codes: J06.9 - Acute upper respiratory infection, unspecified VIRGIE WHITE MD Jul 12, 2017 20:27
[2017-07-12] MEDS ORDERED: DOXY75TA (20:28)
[2017-07-12] MEDS ORDERED: ALB18R INH (20:28)
--- NOTE | 2017-07-12 21:10 | RADIOLOGY IMAGING REPORT ---
FACILITY: [facility] - [place] PATIENT NAME: Ramya Russell : 1955 MR: [id number] V: [id number] EXAM DATE: ORDERING PHYSICIAN: VIRGIE WHITE TECHNOLOGIST: Location: [facility] Patient: Ramya Russell : 1955 Visit/Account:[id number] Date of Sevice: 07/12/2017 EXAMINATION: PA and Lateral Chest 07/12/2017 8:36 PM HISTORY: Chest pain and cough for 2 weeks. COMPARISON: 05/11/2017 FINDINGS: Cardiomediastinal contours: Normal Lungs and pleura: Normal Bones/soft tissues: Normal IMPRESSION: No acute cardiopulmonary abnormality. Report Dictated By: Doni Mendoza MD at 07/12/2017 9:05 PM Report E-Signed By: Doni Mendoza MD at 07/12/2017 9:06 PM WSN:[id number]
--- NOTE | 2017-07-12 21:28 | EKG ---
FACILITY: [facility] PATIENT NAME: VIVIAN HOPPER : [id number] MR: [id number] V: [id number] EXAM DATE: ORDERING PHYSICIAN: VIRGIE WHITE TECHNOLOGIST: AUDELIA Test Reason : CHEST PAIN Blood Pressure : / mmHG Vent. Rate : 091 BPM Atrial Rate : 091 BPM P-R Int : 158 ms QRS Dur : 070 ms QT Int : 358 ms P-R-T Axes : 065 029 053 degrees QTc Int : 440 ms Normal sinus rhythm Possible right atrial enlargement Borderline ECG When compared with ECG of 11-MAY-2017 14:37, No significant change was found Confirmed by ASHLEE MARIE ([id number]) on 07/13/2017 6:21:58 AM Referred By: Confirmed By:ASHLEE MARIE
[2017-07-12 21:45] LABS: PLATELET COUNT, AUTOMATED 350 K/uL (150-450)
[2017-07-12] MEDS ORDERED: LOR5/325 PO (22:05)
[2017-07-12] MEDS ORDERED: ACET/HYDROC 5/325MG TH ER ONLY 2 TAB/BOTTLE PO ONE (22:05)
[2017-07-12 22:11] VITALS: BP 142/86
== END 2017-07-12 22:14 | disposition home or self-care (01) ==
LOC: ER 20:09
DX: J06.9 Acute upper respiratory infection, unspecified (principal)
CPT/HCPCS: 71046; 82040; 82247; 82310; 82374; 82435; 82565; 82947; 84075; 84132; 84155; 84295; 84450; 84460; 84520; 85025; 87502; 93005; 99284

== ENCOUNTER → 2017-07-24 | Outpatient (CLI) | payer MEDICAID ==
[~2017-07-24] MED LIST changes: +ALB18R INH; +AMIT-104 PO; +BENZ200C15 PO; +DOXY75TA; +ESCI5TAB10 PO; +GUAI120L3 PO; +METF-410 PO; +PRED20TA6 PO
[2017-07-24 14:00] LABS: PLATELET COUNT, AUTOMATED 397 K/uL (150-450)
--- NOTE | 2017-07-24 14:22 | RADIOLOGY IMAGING REPORT ---
[facility] PATIENT NAME: Ramya Russell : 1955 MR: [id number] V: [id number] EXAM DATE: ORDERING PHYSICIAN: MEENAKSHI MURPHY TECHNOLOGIST: Location: [facility] [place] Patient: Ramya Russell : 1955 Visit/Account:[id number] Date of Sevice: 07/24/2017 Exam type: CHEST PA AND LAT History: Cough x3 weeks Comparison: July 12, 2017. Findings: The lungs are free of acute effusions, infiltrates or edema. There is no evidence of a pneumothorax or pneumomediastinum. The cardiac swelling appears normal. The trachea is midline. IMPRESSION: 1. No acute cardiopulmonary process is seen Report Dictated By: Ankita Dyer MD at 07/24/2017 2:17 PM Report E-Signed By: Ankita Dyer MD at 07/24/2017 2:18 PM WSN:[email or web address]
== END ==
LOC: LAB 13:36
PROVIDERS: ATTEND Nurse Practitioner Primary Care
DX: R05 Cough (principal)
CPT/HCPCS: 36415; 71046; 82040; 82247; 82310; 82374; 82435; 82565; 82947; 84075; 84132; 84155; 84295; 84450; 84460; 84520; 85025

== ENCOUNTER → 2017-08-06 | Outpatient (CLI) | payer MEDICAID ==
[~2017-08-06] MED LIST changes: +DIPH0.5D12 IM; +ESCI20TA38 PO
== END ==
LOC: LAB 10:39
PROVIDERS: ATTEND Emergency Medicine
DX: E11.9 Type 2 diabetes mellitus without complications (principal)
CPT/HCPCS: 36415; 82465; 83036; 83718; 84478

== ENCOUNTER → 2017-08-12 | Outpatient (CLI) | payer MEDICAID ==
--- NOTE | 2017-08-12 15:08 | RADIOLOGY IMAGING REPORT ---
FACILITY: [facility] - [place] PATIENT NAME: VIVIAN HOPPER : [id number] MR: [id number] V: [id number] EXAM DATE: ORDERING PHYSICIAN: ELLA PALOMO TECHNOLOGIST: Tiana Lyn PROCEDURE:BILATERAL DIGITAL SCREENING MAMMOGRAM WITH CAD ASSISTED INTERPRETATION & 3D TOMOSYNTHESIS COMPARISON:Prior mammograms 03/08/09, 07/15/03, 07/04/1999. INDICATIONS:screening FINDINGS: Mildly heterogeneous fibroglandular tissue is seen throughout the breasts. The parenchymal pattern has remained stable allowing for difference in mammographic technique & patient positioning. There is no evidence of malignant appearing mass, malignant appearing calcifications or other secondary sign of malignancy in either breast. DIAGNOSTIC CATEGORY 1--NEGATIVE. RECOMMENDATIONS: ROUTINE MAMMOGRAM AND CLINICAL EVALUATION. IMPRESSION: BIRADS 1: Negative No significant abnormality is seen. Dictated by: Ankita Dyer M.D. on 08/12/2017 at 13:41 Transcribed by: MIRACLE on 08/12/2017 at 13:51 Approved by: Ankita Dyer M.D. on 08/12/2017 at 15:07 [facility]
== END ==
LOC: MAMO 03:29
PROVIDERS: ATTEND Emergency Medicine
DX: Z12.31 Encounter for screening mammogram for malignant neoplasm of breast (principal)
CPT/HCPCS: 77063; 77067

== ENCOUNTER → 2017-08-14 | Outpatient (REF) | payer MEDICAID ==
[2017-08-14 13:10] LABS: PLATELET COUNT, AUTOMATED 316 K/uL (150-450)
== END ==
PROVIDERS: ATTEND Nurse Practitioner Family
DX: R10.9 Unspecified abdominal pain (principal)
CPT/HCPCS: 82040; 82247; 82310; 82374; 82435; 82565; 82947; 84075; 84132; 84155; 84295; 84450; 84460; 84520; 85025

== ENCOUNTER 2018-02-16 00:51 | Emergency (ER) | payer MEDICAID ==
[~2018-02-16 00:51] MED LIST changes: +AMLO-113 PO; -AMLO-99 PO; -HYDR-4309 PO; +HYDR-653 PO; -METF-410 PO; +METF-450 PO; +ROSU10TA5 PO
--- NOTE | 2018-02-16 00:54 | ER Report ---
History and Physical Time Seen By MD: 00:54 HPI/ROS CHIEF COMPLAINT: Chest pain, neck pain, numbness and left arm HISTORY OF PRESENT ILLNESS: 65-year-old female. 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 Patient presents with neck pain, chest pain, left arm numbness. Patient has a long-standing history of hypertension, type II diabetes on oral agents. She is followed by Dr. Palomo. Patient notes no nausea, diaphoresis or soreness of breath. She admits to being compliant on all of her medications. Patient notes no exertional component to her chest pain. She notes no alleviating symptoms. REVIEW OF SYSTEMS: Respiratory: No cough, no dyspnea. Cardiovascular: As above Gastrointestinal: No vomiting, no abdominal pain. Musculoskeletal: As above Allergies: Coded Allergies: morphine (Verified Allergy, Mild, 04/22/17) Uncoded Allergies: ANESTESIA (Allergy, Mild, 12/14/10) Home Meds Active Scripts Rosuvastatin Calcium (Rosuvastatin Calcium) 10 Mg Tablet, 1 TAB PO DAILY, #30 TAB Prov:ELLA PALOMO MD 08/23/17 Escitalopram Oxalate (LEXAPRO) 20 Mg Tablet, 20 MG PO QDAY, #90 TAB 3 Refills Prov:ELLA PALOMO MD 08/23/17 Amitriptyline Hcl (AMITRIPTYLINE HCL) 10 Mg Tablet, 10 MG PO QHS, #90 TAB 3 Refills Prov:ELLA PALOMO MD 08/06/17 Reported Medications Amoxicillin (AMOXICILLIN) 500 Mg Capsule, 2 CAP PO Q12H, #30 CAPSULE 08/16/17 Metformin Hcl (METFORMIN HCL) Unknown Strength Tablet, PO QDAY, TAB 07/24/17 Lisinopril (Lisinopril) Unknown Strength Tablet, PO BID, #30 0 Refills 12/14/10 Reviewed Nurses Notes: Yes Old Medical Records Reviewed: Yes Hx Smoking: No Smoking Status: Never Smoker Exposure to Second Hand Smoke?: No Hx Substance Use Disorder: No Hx Alcohol Use: No Constitutional Vital Sign - Last 24 Hours 02/16/18 02/16/18 02/16/18 02/16/18 00:57 00:58 01:00 01:21 Temp 97.8 Pulse 74 75 Resp 20 8 B/P (MAP) 157/113 168/118 (135) 179/101 (127) Pulse Ox 94 95 O2 Delivery Room Air 02/16/18 02/16/18 02/16/18 02/16/18 01:30 01:35 01:36 01:51 Pulse 70 73 Resp 16 20 B/P (MAP) 139/85 (103) 167/95 (119) Pulse Ox 96 93 02/16/18 02/16/18 02/16/18 02/16/18 02:00 02:05 02:10 02:25 Pulse 70 74 61 Resp 16 16 11 B/P (MAP) 152/102 (119) Pulse Ox 86 94 94 02/16/18 02/16/18 02:30 02:35 Pulse 62 B/P (MAP) 166/92 (116) Physical Exam General Appearance: The patient is alert, has no immediate need for airway protection and no current signs of toxicity. Vital signs stable, blood pressure grossly elevated HEENT: Pupils equal and round no injection. TMs normal, oropharynx without redness or exudate Respiratory: Chest is non tender, lungs are clear to auscultation. No chest wall tenderness Cardiac: regular rate and rhythm, no murmur Gastrointestinal: Abdomen is soft and non tender, no masses, bowel sounds normal. Musculoskeletal: Neck: Neck is supple and non tender. No JVD, no lymphadenopathy Extremities have full range of motion and are non tender. No edema, no calf tenderness Skin: No rashes or lesions. DIFFERENTIAL DIAGNOSIS: After history and physical exam differential diagnosis was considered for chest pain including but not limited to myocardial ischemia, pericarditis pulmonary embolus, chest wall pain, pleural inflammation and pulmonary infectious causes. Additionally,back pain including but not limited to muscular pain, herniated disc, spine fracture, cervical degenerative disc disease or radiculopathy, anxiety, intra-abdominal causes and urinary tract infection. Medical Decision Making Data Points Result Diagram: 02/16/1810102/16/18101 Laboratory Hematology Test 02/16/18 01:02 Red Blood Count 4.87 M/uL (4.17-5.56) Mean Corpuscular Volume 89.0 fL (80.0-96.0) Mean Corpuscular Hemoglobin 30.8 pg (26.0-33.0) Mean Corpuscular Hemoglobin Concent 34.5 g/dL (32.0-36.0) Red Cell Distribution Width 13.8 % (11.5-14.5) Mean Platelet Volume 7.5 fL (7.2-11.1) Neutrophils (%) (Auto) 47.5 % (39.4-72.5) Lymphocytes (%) (Auto) 38.3 % (17.6-49.6) Monocytes (%) (Auto) 9.9 % (4.1-12.4) Eosinophils (%) (Auto) 3.7 % (0.4-6.7) Basophils (%) (Auto) 0.6 % (0.3-1.4) Nucleated RBC Relative Count (auto) 0.0 /100WBC Neutrophils # (Auto) 3.0 K/uL (2.0-7.4) Lymphocytes # (Auto) 2.4 K/uL (1.3-3.6) Monocytes # (Auto) 0.6 K/uL (0.3-1.0) Eosinophils # (Auto) 0.2 K/uL (0.0-0.5) Basophils # (Auto) 0.0 K/uL (0.0-0.1) Nucleated RBC Absolute Count (auto) 0.00 K/uL Sodium Level 140 mmol/L (137-145) Potassium Level 3.2 mmol/L (3.5-5.0) Chloride Level 104 mmol/L (98-107) Carbon Dioxide Level 26 mmol/L (22-31) Blood Urea Nitrogen 21 mg/dl (7-18) Creatinine 0.90 mg/dl (0.52-1.04) Glomerular Filtration Rate Calc > 60.0 Random Glucose 118 mg/dl (75-110) Calcium Level 9.5 mg/dl (8.4-10.2) Total Bilirubin 1.0 mg/dl (0.2-1.3) Aspartate Amino Transf (AST/SGOT) 30 U/L (0-35) Alanine Aminotransferase (ALT/SGPT) 35 U/L (0-56) Alkaline Phosphatase 83 U/L (0-126) Troponin I < 0.012 ng/ml B-Type Natriuretic Peptide 14 pg/ml (0-100) Total Protein 7.1 g/dl (6.3-8.2) Albumin 4.0 g/dl (3.5-5.0) Chemistry Test 02/16/18 01:02 White Blood Count 6.3 k/uL (4.5-11.0) Red Blood Count 4.87 M/uL (4.17-5.56) Hemoglobin 15.0 g/dL (12.0-16.0) Hematocrit 43.3 % (34.0-47.0) Mean Corpuscular Volume 89.0 fL (80.0-96.0) Mean Corpuscular Hemoglobin 30.8 pg (26.0-33.0) Mean Corpuscular Hemoglobin Concent 34.5 g/dL (32.0-36.0) Red Cell Distribution Width 13.8 % (11.5-14.5) Platelet Count 311 K/uL (150-450) Mean Platelet Volume 7.5 fL (7.2-11.1) Neutrophils (%) (Auto) 47.5 % (39.4-72.5) Lymphocytes (%) (Auto) 38.3 % (17.6-49.6) Monocytes (%) (Auto) 9.9 % (4.1-12.4) Eosinophils (%) (Auto) 3.7 % (0.4-6.7) Basophils (%) (Auto) 0.6 % (0.3-1.4) Nucleated RBC Relative Count (auto) 0.0 /100WBC Neutrophils # (Auto) 3.0 K/uL (2.0-7.4) Lymphocytes # (Auto) 2.4 K/uL (1.3-3.6) Monocytes # (Auto) 0.6 K/uL (0.3-1.0) Eosinophils # (Auto) 0.2 K/uL (0.0-0.5) Basophils # (Auto) 0.0 K/uL (0.0-0.1) Nucleated RBC Absolute Count (auto) 0.00 K/uL Glomerular Filtration Rate Calc > 60.0 Calcium Level 9.5 mg/dl (8.4-10.2) Total Bilirubin 1.0 mg/dl (0.2-1.3) Aspartate Amino Transf (AST/SGOT) 30 U/L (0-35) Alanine Aminotransferase (ALT/SGPT) 35 U/L (0-56) Alkaline Phosphatase 83 U/L (0-126) Troponin I < 0.012 ng/ml B-Type Natriuretic Peptide 14 pg/ml (0-100) Total Protein 7.1 g/dl (6.3-8.2) Albumin 4.0 g/dl (3.5-5.0) EKG/Imaging EKG Interpretation 12 lead EK Rhythm: normal sinus rhythm [place]: normal QRS: normal ST segments: normal, no evidence of ischemia or dysrhythmia Imaging X-ray: Single view portable chest x-ray was obtained. I viewed the images myself on the PACS system. My interpretation of the images is: Lung fishman are clear, no effusion, the cardiac silhouette appears enlarged and with a water bottle appearance,? Pericarditis. The radiologist interpretation had no clinically significant variation from this interpretation. ED Course/Re-evaluation Clinical Indication for ER IV: IV Access ED Course Patient was admitted to an examination room. H&P was done. The differential diagnoses was considered. On clinical examination. Patient was grossly elevated blood pressure. She's complaining of chest pain and back pain with numbness down her left arm. EKG is unremarkable. Troponin is unremarkable. He was treated with Toradol and fentanyl IV. She feels much better. Her blood pressure came down without treatment. She is advised to follow-up with her primary care physician for further evaluation. She needs evaluation for cervical radiculopathy with an MRI. She may need her lisinopril elevated to control her blood pressure better. She may also need some medication for anxiety control. Decision to Disposition Date: Feb 16, 2018 Decision to Disposition Time: 02:46 Depart Departure Latest Vital Signs Vital Signs Date Time Temp Pulse Resp B/P (MAP) Pulse Ox O2 Delivery O2 Flow Rate FiO2 02/16/18 02:35 62 02/16/18 02:30 166/92 (116) 02/16/18 02:25 11 94 02/16/18 00:57 97.8 Room Air Impression: Primary Impression: Hypertension Additional Impressions: Neck pain Type II diabetes mellitus Condition: Improved Disposition: HOME OR SELF-CARE Referrals: ELLA PALOMO MD (PCP) Patient Instructions: Hypertension (ED) Additional Instructions: Follow-up with Dr. Palomo this week for BP recheck Problem Qualifiers Primary Impression: Hypertension Hypertension type: essential hypertension Qualified Codes: I10 - Essential (primary) hypertension Additional Impressions: Type II diabetes mellitus Diabetes mellitus fdc insulin use: with fdc use Diabetes mellitus complication status: without complication Qualified Codes: E11.9 - Type 2 diabetes mellitus without complications; Z79.4 - termite control technician (current) use of insulin LANCE TIERNEY DO Feb 16, 2018 00:54
[2018-02-16] MEDS ORDERED: ASPIRIN 81 MG CHEW PO ONE (01:20)
[2018-02-16] MEDS ORDERED: fentaNYL CITR 100 MCG/2 ML AMP IVP ONE (01:20)
[2018-02-16] MEDS ORDERED: KETOROLAC 30 MG/ML VIAL IVP ONE (01:20)
[2018-02-16 01:28] LABS: PLATELET COUNT, AUTOMATED 311 K/uL (150-450)
--- NOTE | 2018-02-16 01:46 | EKG ---
FACILITY: [facility] PATIENT NAME: VIVIAN HOPPER : [id number] MR: [id number] V: [id number] EXAM DATE: ORDERING PHYSICIAN: LANCE TIERNEY TECHNOLOGIST: YAJAIRA Pope Reason : CHEST PAIN Blood Pressure : / mmHG Vent. Rate : 073 BPM Atrial Rate : 073 BPM P-R Int : 160 ms QRS Dur : 080 ms QT Int : 392 ms P-R-T Axes : 066 018 052 degrees QTc Int : 431 ms Sinus rhythm No acute appearing findings When compared with ECG of 12-JUL-2017 20:14, No significant change was found Confirmed by ALYSON TORRES ([id number]) on 02/16/2018 6:40:10 AM Referred By: Confirmed By:ALYSON TORRES
--- NOTE | 2018-02-16 02:28 | RADIOLOGY IMAGING REPORT ---
FACILITY: [facility] PATIENT NAME: Ramya Russell : 1955 MR: [id number] V: [id number] EXAM DATE: ORDERING PHYSICIAN: LANCE TIERNEY TECHNOLOGIST: Location: [facility] [place] Patient: Ramya Russell : 1955 Visit/Account:[id number] Date of Sevice: 02/16/2018 AP CHEST 02/16/2018 1:20 AM. INDICATION: Chest pain. COMPARISON: 07/24/2017. FINDINGS: Lungs are well-expanded. Is opacification at the left base partially obscures the hemidiaphragm. No significant volume loss. No pleural effusion or pneumothorax. Heart size is normal. IMPRESSION: Hazy left basilar opacification could represent pneumonia or aspiration in the appropriat e setting. Consider follow-up to exclude underlying lesion. Report Dictated By: Gerry Rico MD at 02/16/2018 2:23 AM Report E-Signed By: Gerry Rico MD at 02/16/2018 2:25 AM WSN:[id number]
[2018-02-16 02:30] VITALS: BP 166/92
== END 2018-02-16 03:01 | disposition home or self-care (01) ==
LOC: ER 01:01
DX: I10 Essential (primary) hypertension (principal); E11.9 Type 2 diabetes mellitus without complications; Z79.4 Long term (current) use of insulin; M54.2 Cervicalgia
CPT/HCPCS: 71045; 83880; 84484; 85025; 93005; 96374; 96375; 99284; J1885; J3010; 82040; 82247; 82310; 82374; 82435; 82565; 82947; 84075; 84132; 84155; 84295; 84450; 84460; 84520

== ENCOUNTER → 2018-03-18 | Outpatient (CLI) | payer MEDICAID ==
[~2018-03-18] MED LIST changes: +CITA-137 PO
--- NOTE | 2018-03-18 10:35 | RADIOLOGY IMAGING REPORT ---
[place] [facility] [place] NAME: Ramya Russell : 1955 MR: [id number] V: [id number] EXAM DATE: ORDERING PHYSICIAN: ELLA PALOMO TECHNOLOGIST: [place] [facility] [place] Ramya [place] : 1955 Visit/Account:[id number] Date of Sevice: 03/18/2018 Exam type: CHEST PA AND LAT History: Abnormal chest Xray Comparison: February 08, 2018 and July 24, 2017. Findings: The lungs are free of acute effusions infiltrates or edema. The cardiac silhouette is normal in size . There is mild ectasia the thoracic aorta. Mild to moderate spondylotic changes in the thoracic sp ine. IMPRESSION: 1. No acute cardiopulmonary process is seen Report Dictated By: Ankita Dyer MD at 03/18/2018 10:27 AM Report E-Signed By: Ankita Dyer MD at 03/18/2018 10:29 AM WSN:[email or web address]
== END ==
LOC: RAD 08:56
PROVIDERS: ATTEND Emergency Medicine
DX: R93.89 Abnormal findings on diagnostic imaging of other specified body structures (principal)
CPT/HCPCS: 71046

== ENCOUNTER 2018-04-27 05:12 | Emergency (ER) | payer MEDICAID ==
[~2018-04-27 05:12] MED LIST changes: +ATOR40TA24 PO; +LOSA100T75 PO
--- NOTE | 2018-04-27 05:18 | ER Report ---
History and Physical Time Seen By MD: 05:18 HPI/ROS CHIEF COMPLAINT: Cough, sinus congestion, chest tightness HISTORY OF PRESENT ILLNESS: 62-year-old female presents ambulatory to the ER complaining of URI symptoms for over one week. She notes a productive cough of colored sputum. She's had some low-grade fevers. She notes primarily clear rhinitis. She notes he has some chest pain with coughing. She notes no shortness of breath. She notes no leg swelling. Patient is a nonsmoker. Patient has no history of COPD or asthma. REVIEW OF SYSTEMS: Respiratory: As above Cardiovascular: As above Gastrointestinal: No vomiting, no abdominal pain. Musculoskeletal: No back pain. Allergies: Coded Allergies: morphine (Verified Allergy, Mild, 04/22/17) Uncoded Allergies: ANESTESIA (Allergy, Mild, 12/14/10) Home Meds Active Scripts Guaifenesin/Dextromethorphan (ROBAFEN DM COUGH LIQUID) 118 Ml Liquid, 10 ML PO Q4-6H PRN for cough, #120 Prov:LANCE TIERNEY DO 04/27/18 Cefuroxime Axetil (CEFUROXIME) 500 Mg Tablet, 500 MG PO BID for infection, #20 TAB Prov:LANCE TIERNEY DO 04/27/18 Metformin Hcl (METFORMIN HCL) 500 Mg Tablet, 1 TAB PO QDAY, #90 TAB 3 Refills Prov:ELLA PALOMO MD 04/17/18 Losartan Potassium (LOSARTAN POTASSIUM) 100 Mg Tablet, 100 MG PO QDAY, #90 TAB 3 Refills Prov:ELLA PALOMO MD 04/17/18 Atorvastatin Calcium (LIPITOR) 40 Mg Tablet, 1 TAB PO QDAY, #90 TAB 3 Refills Prov:ELLA PALOMO MD 04/17/18 Citalopram Hydrobromide (CITALOPRAM HBR) 10 Mg Tablet, 1 TAB PO QDAY, #90 TAB 3 Refills Prov:ELLA PALOMO MD 04/17/18 Reviewed Nurses Notes: Yes Old Medical Records Reviewed: Yes Hx Smoking: No Smoking Status: Never Smoker Exposure to Second Hand Smoke?: No Hx Substance Use Disorder: No Hx Alcohol Use: No Constitutional Vital Sign - Last 24 Hours 04/27/18 05:17 Temp 99.8 Pulse 94 Resp 18 B/P (MAP) 142/104 Pulse Ox 90 O2 Delivery Room Air Physical Exam Vital signs stable, low-grade temp 99.8., Pulse ox normal General Appearance: The patient is alert, has no immediate need for airway protection and no current signs of toxicity. Mild distress HEENT: Pupils equal and round no injection. TMs normal, oropharynx with moderate erythema, no exudate or petechiae Respiratory: Chest is non tender, lungs are clear to auscultation. No wheezing or rails, positive chest wall tenderness Cardiac: regular rate and rhythm Gastrointestinal: Abdomen is soft and non tender, no masses, bowel sounds normal. Musculoskeletal: Neck: Neck is supple and non tender. No lymphadenopathy Extremities have full range of motion and are non tender. Skin: No rashes or lesions. DIFFERENTIAL DIAGNOSIS: After history and physical exam differential diagnosis was considered for bronchitis, pneumonia, upper respiratory infection, sinusitis, influenza Medical Decision Making ED Course/Re-evaluation ED Course Patient was admitted to an examination room. H&P was done. The differential diagnoses was considered. On clinical examination. Patient has stable vital signs and normal pulse ox. A low-grade fever. She's had a cough for over one week. Will treat her sinusitis and bronchitis. She's given a prescription for Ceftin antibiotic to take twice daily. Patient's given Robitussin-DM cough syrup for symptomatic relief. She has an allergy to morphine and will unlikely be able to take codeine. Patient's advised Tylenol for fever and body ache relief. Follow up with if unimproved in 4-5 days. Decision to Disposition Date: Apr 27, 2018 Decision to Disposition Time: 05:26 Depart Departure Latest Vital Signs Vital Signs Date Time Temp Pulse Resp B/P (MAP) Pulse Ox O2 Delivery O2 Flow Rate FiO2 04/27/18 05:17 99.8 94 18 142/104 90 Room Air Impression: Primary Impression: Sinusitis Additional Impression: Bronchitis Condition: Improved Disposition: HOME OR SELF-CARE Referrals: ELLA PALOMO MD (PCP) New Scripts Guaifenesin/Dextromethorphan (ROBAFEN DM COUGH LIQUID) 118 Ml Liquid 10 ML PO Q4-6H PRN for cough, #120 Prov: LANCE TIERNEY DO 04/27/18 Cefuroxime Axetil (CEFUROXIME) 500 Mg Tablet 500 MG PO BID for infection, #20 TAB Prov: LANCE TIERNEY DO 04/27/18 Patient Instructions: Acute Bronchitis (ED), Sinusitis (ED) Additional Instructions: Use tylenol for headache relief Follow-up with Dr. Palomo if unimproved in 4-5 days Problem Qualifiers Primary Impression: Sinusitis Sinusitis location: maxillary Chronicity: acute Recurrence: not specified as recurrent Qualified Codes: J01.00 - Acute maxillary sinusitis, unspecified LANCE TIERNEY DO Apr 27, 2018 05:18
[2018-04-27] MEDS ORDERED: GUAI118L21 PO (05:28)
[2018-04-27] MEDS ORDERED: CEFU500T10 PO (05:28)
[2018-04-27] MEDS ORDERED: CEFUROXIME AXETIL 250 MG TAB PO ONE (05:30)
[2018-04-27] MEDS ORDERED: GUAIFENESIN/DEXTROMETHORPHAN 5 ML PO ONE (05:30)
[2018-04-27 05:42] VITALS: BP 154/90
== END 2018-04-27 05:42 | disposition home or self-care (01) ==
LOC: ER 05:24
DX: J01.00 Acute maxillary sinusitis, unspecified (principal); J40 Bronchitis, not specified as acute or chronic
CPT/HCPCS: 99283

== ENCOUNTER → 2018-05-19 | Outpatient (CLI) | payer MEDICAID ==
[~2018-05-19] MED LIST changes: -AMLO-113 PO; +AMLO-127 PO; +CEFU500T10 PO; +GUAI118L21 PO
[2018-05-19 10:47] LABS: LDL CHOLESTEROL 60 mg/dl
== END ==
LOC: LAB 09:42
PROVIDERS: ATTEND Emergency Medicine
DX: E78.5 Hyperlipidemia, unspecified (principal); I10 Essential (primary) hypertension
CPT/HCPCS: 36415; 82310; 82374; 82435; 82465; 82565; 82947; 83718; 84132; 84295; 84478; 84520

== ENCOUNTER → 2018-10-09 | Outpatient (CLI) | payer MEDICAID ==
[~2018-10-09] MED LIST changes: +CITA-145 PO; -DIPH0.5D12 IM; +DIPH0.5S2 IM; +HYDR12.556 PO
--- NOTE | 2018-10-09 11:19 | RADIOLOGY IMAGING REPORT ---
FACILITY: [facility] PATIENT NAME: Ramya Russell : 1955 MR: [id number] V: [id number] EXAM DATE: ORDERING PHYSICIAN: PABLITO LOPEZ TECHNOLOGIST: Location: [facility] Patient: Ramya Russell : 1955 Visit/Account:[id number] Date of Sevice: 10/09/2018 EXAMINATION: Limited right upper quadrant ultrasound 10/09/2018 9:38 AM HISTORY: Right upper quadrant pain since Saturday. COMPARISON STUDIES: I do not see the images from the 06/20/2016 study archived in our system, but I d o have the report. FINDINGS: Gallbladder: No stones, wall thickening, or pericholecystic fluid. Sonographic Beth sign is report ed as positive. Liver: Liver is echogenic consistent with fatty infiltration. No focal finding. Capsular contours a ppear smooth. Portal venous flow is towards the liver. Common duct: 4 mm Pancreas: negative Right kidney: negative Upper abdominal aorta and IVC: negative Ascites: none IMPRESSION: 1. Sonographic Beth sign is reported as positive but the imaging appearance of the gallbladder and bile ducts is unremarkable. 2. Fatty liver. Report Dictated By: Doni Mendoza MD at 10/09/2018 11:09 AM Report E-Signed By: Doni Mendoza MD at 10/09/2018 11:12 AM WSN:[email or web address]
== END ==
LOC: US 09:28
PROVIDERS: ATTEND Physician Assistant
DX: K76.89 Other specified diseases of liver (principal)
CPT/HCPCS: 76705

== ENCOUNTER → 2018-10-09 | Outpatient (REF) | payer MEDICAID ==
[2018-10-09 09:52] LABS: PLATELET COUNT, AUTOMATED 327 K/uL (150-450)
== END ==
LOC: ZZSTITCHES 09:39
PROVIDERS: ATTEND Physician Assistant
DX: R10.11 Right upper quadrant pain (principal); R11.2 Nausea with vomiting, unspecified
CPT/HCPCS: 82040; 82150; 82247; 82310; 82374; 82435; 82565; 82947; 84075; 84132; 84155; 84295; 84450; 84460; 84520; 85025

== ENCOUNTER → 2018-11-06 | Outpatient (CLI) | payer MEDICAID ==
[~2018-11-06] MED LIST changes: +NAPOD OD
== END ==
LOC: LAB 15:16
PROVIDERS: ATTEND Emergency Medicine
DX: R73.03 Prediabetes (principal)
CPT/HCPCS: 36415; 83036

== ENCOUNTER → 2018-11-07 | Outpatient (CLI) | payer MEDICAID ==
--- NOTE | 2018-11-10 07:14 | EKG ---
FACILITY: [facility] - [place] PATIENT NAME: VIVIAN HOPPER : [id number] MR: [id number] V: [id number] EXAM DATE: ORDERING PHYSICIAN: ELLA PALOMO TECHNOLOGIST: RADHA ROSE Test Reason : CHEST PAIN Blood Pressure : / mmHG Vent. Rate : 064 BPM Atrial Rate : 064 BPM P-R Int : 148 ms QRS Dur : 080 ms QT Int : 428 ms P-R-T Axes : 054 012 047 degrees QTc Int : 441 ms Normal sinus rhythm Normal ECG No previous ECGs available Confirmed by ELLA PALOMO ([id number]) on 11/10/2018 12:29:48 PM Referred By: Confirmed By:ELLA PALOMO
== END ==
LOC: RESP 10:12
PROVIDERS: ATTEND Emergency Medicine
DX: Z02.9 Encounter for administrative examinations, unspecified (principal)